=== PATIENT | male | born 1960 | race Caucasian/White ===

== ENCOUNTER 2021-08-12 09:09 | Day surgery (SDC) | payer OTHER, SELFPAY ==
[~2021-08-12] VITALS: Ht 172.7 cm; Wt 79.4 kg
[2021-08-12 10:48] LABS: PROTHROMBIN TIME 10.7 secs (10.8-13.4)
[2021-08-12] MEDS ORDERED: LIDOCAINE 2% 1000 MG/50 ML VIAL INJ ONE ×2 (11:43→12:30)
[2021-08-12] MEDS ORDERED: fentaNYL citrate 0.05 MG/ML VIAL ONE (12:09)
[2021-08-12] MEDS ORDERED: fentaNYL citrate 0.05 MG/ML VIAL IVP ONE (12:30)
== END 2021-08-12 13:06 | disposition home or self-care (01) ==
LOC: MDS 09:09 → MMU 09:10 → MDS 13:06
PROVIDERS: ATTEND Internal Medicine Gastroenterology
DX: K70.10 Alcoholic hepatitis without ascites (principal); Z20.822 Contact with and (suspected) exposure to COVID-19
CPT/HCPCS: 36415; 47000; 76942; 85610; 85730; J2001; J3010; Q0092; U0003; 88307; 88313

== ENCOUNTER 2023-02-16 10:40 | Inpatient (IN) | payer OTHER ==
[~2023-02-16] VITALS: Ht 172.7 cm; Wt 72.1 kg
[2023-02-16 10:43] VITALS: BP 139/86
[2023-02-16 12:18] LABS: APPEARANCE,URINE CLEAR (CLEAR); BILIRUBIN,URINE NEGATIVE (NEGATIVE); BLOOD, URINE NEGATIVE (NEGATIVE); COLOR,URINE YELLOW (YELLOW); LEUKOCYTE ESTERASE ,URINE NEGATIVE (NEGATIVE); NITRITE, URINE NEGATIVE (NEGATIVE); UGLUCOSE NEGATIVE (NEGATIVE)
[2023-02-16 12:21] LABS: BASOPHILS % (AUTO) 0.4 % (0.0-2.0); EOSINOPHILS % (AUTO) 0.6 % (0.0-4.0); HEMATOCRIT 36.3 % (36-52); HEMOGLOBIN 12.3 g/dL (12.0-18.0); LYMPHOCYTES # (AUTO) 0.7 K/uL (2.0-11.5); LYMPHOCYTES % (AUTO) 19.9 % (20.5-51.1); MEAN CORPUSCULAR HEMOGLOBIN 35 pg (27-31); MEAN CORPUSCULAR HGB CONC 34 g/dL (33-37); MEAN CORPUSCULAR VOLUME 102.2 fL (80-94); MONOCYTES # (AUTO) 0.7 K/uL (0.8-1.0); MONOCYTES % (AUTO) 18.9 % (1.7-9.3); NEUTROPHILS # (AUTO) 2.2 K/uL (1.8-7.7); NEUTROPHILS % (AUTO) 60.2 % (42.2-75.2); PLATELET COUNT (AUTO) 60 K/uL (140-450); RED BLOOD CELL COUNT(AUTO) 3.55 MIL/uL (4.20-6.10); RED CELL DISTRIBUTION WIDTH 14.1 % (11.6-13.7); WHITE BLOOD COUNT (AUTO) 3.7 K/uL (4.8-10.8)
[2023-02-16 13:00] LABS: ALBUMIN 3.1 g/dL (3.4-5.0); ANION GAP 11.7 (8-16); CARBON DIOXIDE 23.1 mmol/L (21-32); POTASSIUM 3.8 mmol/L (3.5-5.1); TOTAL BILIRUBIN 3.4 mg/dL (0.0-1.0)
--- NOTE | 2023-02-16 13:50 | NUR ---
PATIENT AMBULATES TO BED 2
[2023-02-16 14:01] LABS: THYROID STIMULATING HORMONE 2.43 uIU/mL (0.34-3.74)
[2023-02-16] MEDS ORDERED: ACETAMINOPHEN 325 MG TAB PO PRN (15:30)
[2023-02-16] MEDS ORDERED: ONDANSETRON 4 MG/2 ML VIAL IVP PRN (15:30)
[2023-02-16] MEDS: NACL 0.9% 1,000 ML IV SCH (16:39)
--- NOTE | 2023-02-16 18:16 | NUR ---
Patient will be admitted to care of DR. REED. Admited to [facility]. Will go to room 119B. Belongings list completed. Report to TRINA VALERIO.
--- NOTE | 2023-02-16 18:30 | NUR ---
PT ARRIVED TO [facility] UNIT FROM ER VIA WHEELCHAIR. RECEIVED REPORT FROM ER NURSE. PT IS AOX4, AMBULATORY, NO SIGNS OF DISTRESS. IV TO RIGHT UPPER ARM, CLEAN, INTACT, PATENT. PT HAS NS RUNNING AT 70MLS/HR. WILL CONTINUE WITH CARE.
--- NOTE | 2023-02-16 19:16 | NUR ---
ENDORSED PT TO NIGHTSHIFT NURSE FOR CONTINUITY OF CARE.
--- NOTE | 2023-02-16 19:53 | NUR ---
RECEIVED REPORT FROM DAY SHIFT NURSE FOR CONTINUITY OF CARE. PT IS AWAKE, A&O X4, NO PAIN STATED AT THIS TIME. ON ROOM AIR WITH NO SIGNS OF RESPIRATORY DISTRESS NOTED. PT IS AMBULATORY AND CONTINENT. OVERALL SKIN INTACT. CALL LIGHT WITHIN REACH, SAFETY MEASURES IN PLACE, WILL MAKE FREQUENT ROUNDS.
[2023-02-16 21:04] VITALS: BP 148/76
--- NOTE | 2023-02-16 22:34 | NUR ---
PT ASLEEP AT THIS TIME. NO VISABLE SIGNS OF DISTRESS NOTED AT THIS TIME. WILL CONTINUE TO MONITOR THE PT.
[2023-02-17 04:00] VITALS: BP 122/78
[2023-02-17] MEDS: NACL 0.9% 1,000 ML IV SCH (05:08)
--- NOTE | 2023-02-17 05:20 | NUR ---
PT SLEPT WELL THROUGHOUT SHIFT. 1120 ML DRAINED FROM URINAL. NO BM'S. WILL CONTINUE TO MONITOR THE PATIENT.
--- NOTE | 2023-02-17 07:20 | NUR ---
RECEIVED REPORT FROM APPLICATION DEVELOPER NURSE FOR CONTINUITY OF CARE. PT STABLE AT THIS TIME.
--- NOTE | 2023-02-17 07:23 | NUR ---
ENDORSED TO DAY SHIFT NURSE FOR CONTINUITY OF CARE. PT IS STABLE
[2023-02-17 07:46] LABS: HEMATOCRIT 33.1 % (36-52); HEMOGLOBIN 11.4 g/dL (12.0-18.0); MEAN CORPUSCULAR HEMOGLOBIN 35 pg (27-31); MEAN CORPUSCULAR HGB CONC 34 g/dL (33-37); MEAN CORPUSCULAR VOLUME 102.6 fL (80-94); PLATELET COUNT (AUTO) 49 K/uL (140-450); RED BLOOD CELL COUNT(AUTO) 3.23 MIL/uL (4.20-6.10); RED CELL DISTRIBUTION WIDTH 14.5 % (11.6-13.7); WHITE BLOOD COUNT (AUTO) 2.4 K/uL (4.8-10.8)
[2023-02-17 08:00] VITALS: BP 149/88
[2023-02-17 08:14] LABS: ALBUMIN 2.5 g/dL (3.4-5.0); ANION GAP 11.9 (8-16); CARBON DIOXIDE 22.9 mmol/L (21-32); CREATININE 0.8 mg/dL (0.6-1.3); MAGNESIUM 1.7 mg/dL (1.8-2.4); POTASSIUM 3.8 mmol/L (3.5-5.1)
[2023-02-17] MEDS ORDERED: MAG SULF 2000 MG/WATER PREMIX 50 ML IV SCH (09:00)
[2023-02-17 12:48] LABS: MONOCYTES % (MANUAL) 18 % (5-12)
[2023-02-17 12:50] LABS: LYMPHOCYTES % (MANUAL) 25 % (20-46)
[2023-02-17 12:51] LABS: EOSINOPHILS % (MANUAL) 2 % (0-4)
[2023-02-17 16:00] VITALS: BP 133/77
[2023-02-17] MEDS ORDERED: THIA-10 PO (16:04)
[2023-02-17] MEDS ORDERED: FOLI2000 PO (16:04)
[2023-02-17 17:32] VITALS: BP 133/77
== END 2023-02-17 18:25 | disposition home or self-care (01) | DRG 426 ==
LOC: MED 10:40 → MTU 15:28
PROVIDERS: ADMIT Internal Medicine; ATTEND Internal Medicine
DX: E87.1 Hypo-osmolality and hyponatremia (principal); E80.6 Other disorders of bilirubin metabolism; F10.10 Alcohol abuse, uncomplicated; Y90.9 Presence of alcohol in blood, level not specified; Z20.822 Contact with and (suspected) exposure to COVID-19; E83.42 Hypomagnesemia; R74.01 Elevation of levels of liver transaminase levels; Z86.718 Personal history of other venous thrombosis and embolism; Z79.01 Long term (current) use of anticoagulants
CPT/HCPCS: 36415; 80053; 81003; 83690; 83735; 83930; 84443; 85025; 87081; 99285; J3475

== ENCOUNTER 2023-08-16 12:53 | Emergency (ER) | payer OTHER ==
[~2023-08-16] VITALS: Ht 172.7 cm; Wt 69.4 kg
[~2023-08-16 12:53] MED LIST: FOLI2000 PO; THIA-10 PO
[2023-08-16 13:17] VITALS: BP 117/69; PULSE 87; RESP 20; TEMP 98.9; O2SAT 99
[2023-08-16] MEDS ORDERED: KETOROLAC 60 MG/2 ML VIAL IM ONE (16:05)
[2023-08-16] MEDS ORDERED: CIPR500T4 PO (16:14)
[2023-08-16] MEDS ORDERED: IBUP-2213 PO (16:14)
[2023-08-16 16:27] VITALS: O2SAT 99
[2023-08-16 16:31] VITALS: BP 117/69; PULSE 87; RESP 20; TEMP 98.9; O2SAT 99
== END 2023-08-16 16:54 | disposition home or self-care (01) ==
LOC: MED 12:53
DX: R19.7 Diarrhea, unspecified (principal); K62.89 Other specified diseases of anus and rectum; Z79.899 Other long term (current) drug therapy
CPT/HCPCS: 96372; 99283; J1885

== ENCOUNTER 2023-08-22 13:04 | Emergency (ER) | payer OTHER ==
[~2023-08-22] VITALS: Ht 172.7 cm; Wt 70.0 kg
[~2023-08-22 13:04] MED LIST changes: +CIPR500T4 PO; +IBUP-2213 PO
[2023-08-22 13:21] VITALS: BP 141/78; PULSE 79; RESP 19; TEMP 98.5; O2SAT 95
[2023-08-22] MEDS ORDERED: POLYETHYLENE GLYCOL 17 GM/PKT PO ONE (14:35)
[2023-08-22] MEDS ORDERED: LACTULOSE 20 GM/30 ML UDC PO ONE (14:35)
[2023-08-22] MEDS ORDERED: DOCUSATE SODIUM 100 MG GELCAP PO SCH (14:35)
[2023-08-22] MEDS ORDERED: MIRABULK PO (15:01)
[2023-08-22] MEDS ORDERED: DOCU-299 PO (15:01)
[2023-08-22] MEDS ORDERED: DOCU283N RC (15:01)
[2023-08-22 15:17] VITALS: BP 141/78; PULSE 79; RESP 19; TEMP 98.5; O2SAT 95
== END 2023-08-22 15:17 | disposition home or self-care (01) ==
LOC: MED 13:04
DX: K59.00 Constipation, unspecified (principal); Z79.899 Other long term (current) drug therapy
CPT/HCPCS: 99284